=== PATIENT | female | born 2000 | race Caucasian/White ===

== ENCOUNTER 2019-04-16 08:03 | Emergency (ER) | payer BC ==
[2019-04-16] MEDS ORDERED: Ibuprofen 200 MG TAB ONE (08:52)
[2019-04-16] MEDS ORDERED: Bicillin LA 1.2 MILLION UNITS/2 ML SYRINGE ONE (09:37)
== END 2019-04-16 10:57 | disposition home or self-care (01) ==
LOC: ERS 08:03
DX: J02.0 Streptococcal pharyngitis (principal); F17.210 Nicotine dependence, cigarettes, uncomplicated
CPT/HCPCS: 87430; 96372; J0561